=== PATIENT | female | born 1985 | race African-American/Black ===

== ENCOUNTER 2019-02-15 13:48 | Emergency (ER) | payer MEDICAID ==
[~2019-02-15] VITALS: Ht 147.3 cm; Wt 68.0 kg
[2019-02-15 16:01] LABS: CLARITY URINE CLOUDY (CLEAR); COLOR URINE YELLOW (YELLOW); KETONES URINE NEGATIVE (NEGATIVE); LEUKOCYTE ESTERASE URINE NEGATIVE (NEGATIVE); NITRITE URINE NEGATIVE (NEGATIVE); OCCULT BLOOD URINE 1+ (NEGATIVE); PROTEIN URINE NEGATIVE (NEGATIVE); SPECIFIC GRAVITY URINE 1.022 (1.005-1.030)
[2019-02-15 17:08] VITALS: BP 110/75
[2019-02-15] MEDS ORDERED: IBUPROFEN 800MG TABLET PO ONE (17:15)
== END 2019-02-15 17:40 | disposition home or self-care (01) ==
LOC: ER 13:48
DX: O26.891 Other specified pregnancy related conditions, first trimester (principal); R10.2 Pelvic and perineal pain; Z3A.00 Weeks of gestation of pregnancy not specified; Z98.890 Other specified postprocedural states
CPT/HCPCS: 81025; 99283